=== PATIENT | female | born 1990 | race Caucasian/White ===

== ENCOUNTER 2021-12-16 12:07 | Outpatient (CLI) | payer OTHER ==
[2021-12-16 13:16] LABS: HEMOGLOBIN 11.2 gm/dl (12.3-15.3); RED BLOOD COUNT 3.8 M/UL (4.00-5.10); WHITE BLOOD COUNT 9.9 K/UL (4.5-11.0)
[2021-12-16 13:39] LABS: BUN/CREATININE RATIO 10 (0-10)
[2021-12-17] MEDS ORDERED: METFORMIN HCL500 MG PO (06:24)
[2021-12-17] MEDS ORDERED: PRENATABS RX T1 EACH PO (06:25)
[2021-12-17] MEDS ORDERED: DOCUSATE SODIU100 MG PO (08:12)
[2021-12-17] MEDS ORDERED: HYDROCODON-ACE1 EAC4 PO (08:12)
[2021-12-17] MEDS ORDERED: IBUPROFEN600 MG PO (08:12)
== END 2021-12-16 13:35 | disposition home or self-care (01) ==
LOC: GENOP 12:07 → OPSV2 12:07 → GENOP 13:35
PROVIDERS: Obstetrics & Gynecology
DX: Z01.812 Encounter for preprocedural laboratory examination (principal)
CPT/HCPCS: 80053; 81001; 85025

== ENCOUNTER 2021-12-17 05:33 | Inpatient (IN) | payer OTHER ==
[~2021-12-17] VITALS: Ht 170.2 cm; Wt 82.1 kg
[2021-12-17] MEDS ORDERED: METFORMIN HCL500 MG PO (06:24)
[2021-12-17] MEDS ORDERED: PRENATABS RX T1 EACH PO (06:25)
[2021-12-17] MEDS ORDERED: DOCUSATE SODIU100 MG PO (08:12)
[2021-12-17] MEDS ORDERED: IBUPROFEN600 MG PO (08:12)
[2021-12-17] MEDS ORDERED: HYDROCODON-ACE1 EAC4 PO (08:12)
[2021-12-18] MEDS ORDERED: TRANDATE 100 M100 MG PO (13:27)
[2021-12-18] MEDS ORDERED: IRON325 M1 PO (13:27)
== END 2021-12-19 15:06 | disposition home or self-care (01) | DRG 787 ==
LOC: OB 05:33
PROVIDERS: ADMIT Obstetrics & Gynecology
PROC: 10D00Z1 Extraction of Products of Conception, Low, Open Approach (ICD-10-PCS; 2021-12-17)
PROC: 3E0234Z Introduction of Serum, Toxoid and Vaccine into Muscle, Percutaneous Approach (ICD-10-PCS; principal; 2021-12-17 07:30)
DX: O24.420 Gestational diabetes mellitus in childbirth, diet controlled (principal); D62 Acute posthemorrhagic anemia; O36.63X0 Maternal care for excessive fetal growth, third trimester, not applicable or unspecified; O34.211 Maternal care for low transverse scar from previous cesarean delivery; O99.02 Anemia complicating childbirth; O13.4 Gestational [pregnancy-induced] hypertension without significant proteinuria, complicating childbirth; O40.3XX0 Polyhydramnios, third trimester, not applicable or unspecified; O99.892 Other specified diseases and conditions complicating childbirth; G43.909 Migraine, unspecified, not intractable, without status migrainosus; Z82.49 Family history of ischemic heart disease and other diseases of the circulatory system; O99.214 Obesity complicating childbirth; E66.9 Obesity, unspecified; Z28.310 Unvaccinated for COVID-19; Z82.5 Family history of asthma and other chronic lower respiratory diseases; Z83.3 Family history of diabetes mellitus; Z80.8 Family history of malignant neoplasm of other organs or systems; Z23 Encounter for immunization
CPT/HCPCS: 82800; 82962; 85014; 85018; 90715; C9113; J0690; J1650; J1885; J2274; J2405; J2590; J3010